=== PATIENT | male | born 1945 | race Caucasian/White ===

== ENCOUNTER 2018-05-03 11:08 | Observation (INO) ==
[2018-05-03 12:33] LABS: Baso % (Auto) 0.7 % (0.0-2.0); Eos # (Auto) 0.1 th/mm3 (0.0-0.4); Eos % (Auto) 1.8 % (0.0-4.0); Hematocrit 41.2 % (39.0-51.0); Hemoglobin 13.9 gm/dL (13.0-17.0); Lymph # (Auto) 0.7 th/mm3 (1.0-4.8); Lymph % (Auto) 10.8 % (9.0-44.0); Mean Corpuscular HGB Conc 33.9 % (32.0-36.0); Mean Corpuscular Hemoglobin 28.6 pg (27.0-34.0); Mean Corpuscular Volume 84.5 fL (80.0-100.0); Mean Platelet Volume 7.7 fL (7.0-11.0); Mono # (Auto) 0.5 th/mm3 (0.0-0.9); Mono % (Auto) 6.8 % (0.0-8.0); Neut # (Auto) 5.6 th/mm3 (1.8-7.7); Neut % (Auto) 79.9 % (16.0-70.0); Platelet Count 184 th/mm3 (150-450); Red Blood Count 4.88 mil/mm3 (4.50-5.90); Red Cell Distribution Width 13.2 % (11.6-17.2); White Blood Count 6.9 th/mm3 (4.0-11.0)
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
[2018-05-03 12:43] LABS: Chloride 104 meq/L (98-107); Potassium 4.4 meq/L (3.5-5.1); Sodium 138 meq/L (136-145)
[2018-05-03 12:46] LABS: Bilirubin,Urine Negative (Negative); Clarity,Urine Clear (Clear); Color,Urine Yellow (Yellw/Straw); Leukocyte Esterase,Urine Negative (Negative); Nitrite,Urine Negative (Negative); PH,Urine 5.5 (5.0-8.5); Urobilinogen,Urine 0.2 mg/dL (Less than 2)
[2018-05-03 12:48] LABS: Albumin 3.7 g/dL (3.4-5.0); Anion Gap 9 meq/L (5-15); Blood Urea Nitrogen 22 mg/dL (7-18); Carbon Dioxide 24.7 meq/L (21.0-32.0); Glucose,Random 280 mg/dL (74-106)
[2018-05-03 12:49] LABS: Magnesium 2.5 mg/dL (1.5-2.5)
[2018-05-03 12:51] LABS: Alanine Aminotransferase 20 U/L (12-78); Aspartate Aminotransferase 16 U/L (15-37); Glomerular Filtration Rate 46 mL/min (>89)
[2018-05-03 12:53] LABS: Total Protein 6.7 g/dL (6.4-8.2)
[2018-05-03 12:54] LABS: Alkaline Phosphatase 57 U/L (45-117)
[2018-05-03 12:57] LABS: Collection Time,Urine 1210 hours
[2018-05-03 12:58] LABS: RBC,Urine 0-3 /hpf (0-3); Squamous Epithelial Cell,Urine 0-5 /hpf (0-5)
--- NOTE | 2018-05-03 13:20 | CT ---
EXAM DATE: 05/03/2018 1:02 PM EST AGE/SEX: 73 years / Male INDICATIONS: Altered Mental Status CLINICAL DATA: This is the patient's initial encounter. Patient reports that signs and symptoms have been present for 1 day and indicates a pain score of 0/10. MEDICAL/SURGICAL HISTORY: Diabetes. Carcinoma, prostatic. Hypertension. Tonsillectomy. RADIATION DOSE: 59.28 CTDI (mGy) COMPARISON: POI, CT BRAIN W/O CONTRAST, 08/15/2016. . TECHNIQUE: CT of the head without contrast. Using automated exposure control and adjustment of the mA and/or kV according to patient size, radiation dose was kept as low as reasonably achievable to ob tain optimal diagnostic quality images. DICOM format image data is available electronically for revi ew and comparison. FINDINGS: Cerebrum: The ventricles are normal for age. No evidence of midline shift, mass lesion, hemorrhage or acute infarction. No extraaxial fluid collections are seen. Posterior Fossa: The cerebellum and brainstem are intact. The 4th ventricle is midline. The cerebe llopontine angle is unremarkable. Extracranial: The visualized portion of the orbits is intact. Skull: The calvaria is intact. No evidence of skull fracture. CONCLUSION: 1. Stable evaluation of the brain. 2. No evidence of acute infarct, hemorrhage, mass or edema. . Electronically signed by: Meliton Thomas MD Board Certified Radiologist 05/03/2018 1:19 PM EST
[2018-05-03] MEDS ORDERED: Dextrose 50% in Water 50 ML Vial IV.PUSH PRN (14:38)
[2018-05-03 14:44] LABS: Amphetamine Screen,Urine Neg (Neg); Barbiturate Screen,Urine Neg (Neg); Cannabinoid Screen,Urine Neg (Neg); Cocaine Screen,Urine Neg (Neg)
[2018-05-03 14:45] LABS: Opiate Screen,Urine Neg (Neg)
[2018-05-03] MEDS: Insulin NovoLOG Aspart Correctional Sugar Inj SQ SCH ×2 (17:37→21:57)
[2018-05-03] MEDS: Sod Chloride 0.9% Inj 1,000 ML IV.CONT SCH (17:39)
--- NOTE | 2018-05-03 17:41 | ECG ---
Date Performed: 05/03/2018 Time Performed: 12:39:20 PTAGE: 73 years EKG: SINUS BRADYCARDIA BORDERLINE ECG PREVIOUS TRACING : 04/07/2004 03.25 Since the previous tracing, no significant change noted DOCTOR: Win Nuñez Interpretating Date/Time 05/03/2018 17:39:31
--- NOTE | 2018-05-03 17:59 | US ---
EXAM DATE: 05/03/2018 5:38 PM EST AGE/SEX: 73 years / Male INDICATIONS: Transient ischemic attack. CLINICAL DATA: This is the patient's initial encounter. Patient reports that signs and symptoms have been present for 1 day and indicates a pain score of 1/10. MEDICAL/SURGICAL HISTORY: Hypercholesterolemia. Hypertension. Diabetes. Prostate cancer. Thyr oidectomy. Radiation therapy. COMPARISON: No prior exams available for comparison. VELOCITY PARAMETERS: ICA/CCA Ratio: Right 0.8 , Left 1.7 ICA: Right 70 cm/sec, Left 179 cm/sec CCA: Right 84 cm/sec, Left 104 cm/sec ECA: Right 76 cm/sec, Left 102 cm/sec Vertebral: Right 51 cm/sec antegrade, Left 33 cm/sec antegrade FINDINGS: Right Carotid: No significant plaque is visualized.The waveforms are within normal limits. Left Carotid: Mild arteriosclerotic plaque is visualized. The waveforms are within normal limits. Other: None. CONCLUSION: 1. Right Internal Carotid Artery: No significant stenosis or atherosclerotic plaque is visualized. 2. Left Internal Carotid Artery: Findings indicate <50% stenosis. Focal plaque is identified in the carotid bifurcation. Electronically signed by: Meliton Thomas MD Board Certified Radiologist 05/03/2018 5:58 PM EST
--- NOTE | 2018-05-03 18:53 | MR ---
EXAM DATE: 05/03/2018 6:33 PM EST AGE/SEX: 73 years / Male INDICATIONS: . Discoordination. Uncontrollable shaking. CLINICAL DATA: This is the patient's initial encounter. Patient reports that signs and symptoms have been present for 1 day and indicates a pain score of 0/10. MEDICAL/SURGICAL HISTORY: Carcinoma, prostatic. Diabetes mellitus type II. Hypertension. Tons illectomy. COMPARISON: No prior exams available for comparison. TECHNIQUE: Multiplanar, multisequence examination of the brain was performed without contrast. FINDINGS: There is an acute 2.4 cm infarct in the right parietal lobe and numerous additional small subcentimet er infarcts in the posterior right brain extending into the occipital and posterior temporal region. No left-sided infarcts identified. Mild white matter ischemic changes in the brain. Globes intact. No abnormal extra-axial fluid collections. CONCLUSION: 1. Numerous small infarcts in the posterior right MCA distribution. Largest measures about 2.4 cm in diameter. Mild white matter ischemic changes. Electronically signed by: Salvatore Shin MD Board Certified Radiologist 05/03/2018 6:51 PM EST
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
[2018-05-03] MEDS ORDERED: hydrALAZINE 25 MG Tablet PO ONE (20:20)
[2018-05-03] MEDS ORDERED: Famotidine 20 MG Tablet PO ONE (20:21)
[2018-05-03] MEDS: Insulin Detemir Inj 1,000 UNIT/10 ML Vial SQ SCH (21:56)
[2018-05-03] MEDS ORDERED: Aluminum/Magnesium/Simethacone Susp 30 ML UDC PO ONE (23:13)
[2018-05-04] MEDS: Insulin NovoLOG Aspart Correctional Sugar Inj SQ SCH ×2 (07:35→11:48)
[2018-05-04] MEDS: Insulin Detemir Inj 1,000 UNIT/10 ML Vial SQ SCH (08:07)
[2018-05-04 11:02] LABS: Chol/HDL Ratio 2.61 Ratio; HDL Cholesterol 64.2 mg/dL (40.0-60.0)
--- NOTE | 2018-05-04 12:01 | P.PNIM ---
Subjective Interval history: Patient says he is feeling well. no cp or sob Discussed with at bedside who says she will be with him at all times. She will not let him drive the car. Patient agrees he would not drive the car. Physical Exam Vital signs: Vital Signs 05/03/18 12:29 05/03/18 12:30 05/03/18 13:26 Temperature Pulse Rate 59 L 54 L Respiratory Rate 18 18 Blood Pressure 164/98 H 173/70 H Pulse Oximetry 98 98 98 05/03/18 14:03 05/03/18 16:00 05/03/18 16:41 Temperature 96.9 F L 96.9 F L Pulse Rate 58 L 60 60 Respiratory Rate 18 17 17 Blood Pressure 144/88 H 179/87 H 179/87 H Pulse Oximetry 98 100 100 05/03/18 20:00 05/03/18 23:57 05/04/18 04:00 Temperature 96.9 F L 96.3 F L 97.2 F L Pulse Rate 60 60 74 Respiratory Rate 20 20 20 Blood Pressure 195/109 H 201/87 H 174/84 H Pulse Oximetry 100 99 99 05/04/18 08:00 Temperature 98.0 F Pulse Rate 71 Respiratory Rate 16 Blood Pressure 173/98 H Pulse Oximetry 97 Intake & Output 05/03/18 05/04/18 05/04/18 18:59 06:59 18:59 Intake Total 480 / 480 240 / 240 Output Total 300 / 300 Balance 180 / 180 240 / 240 Weight 75.8 kg 75.6 kg Intake: Oral 480 / 480 240 / 240 Output: Urine 300 / 300 Other: # Voids 2 6 Date of Last Bowel Movement 05/03/18 # Bowel Movements 0 Narrative: GENERAL: Sitting up in chair. Appears comfortable. Oriented x3 SKIN: Warm and dry. HEAD: Normocephalic. EYES: No scleral icterus. No injection or drainage. NECK: Supple, trachea midline. No JVD. CARDIOVASCULAR: Regular rate and rhythm without murmurs, gallops, or rubs. RESPIRATORY: Breath sounds equal bilaterally. No accessory muscle use. GASTROINTESTINAL: Abdomen soft, non-tender, nondistended. MUSCULOSKELETAL: No cyanosis, or edema. BACK: Nontender without obvious deformity. No CVA tenderness. Results - Labs CBC & Chem 7: 05/03/18 12:25 05/03/18 12:25 Laboratory Results - last 24 hr 05/03/18 05/03/18 05/03/18 12:10 12:10 12:25 CBC w Diff Auto diff final WBC 6.9 RBC 4.88 Hgb 13.9 Hct 41.2 MCV 84.5 MCH 28.6 MCHC 33.9 RDW 13.2 Plt Count 184 MPV 7.7 Neut % (Auto) 79.9 H Lymph % (Auto) 10.8 [place] % (Auto) 6.8 Eos % (Auto) 1.8 Baso % (Auto) 0.7 Neut # (Auto) 5.6 Lymph # (Auto) 0.7 L [place] # (Auto) 0.5 Eos # (Auto) 0.1 Baso # (Auto) 0.0 WBC Differential . Differential Comment . Sodium Potassium Chloride Carbon Dioxide Anion Gap BUN Creatinine Estimated GFR POC Glucose Random Glucose Calcium Magnesium Total Bilirubin AST ALT Alkaline Phosphatase Ammonia Troponin I Total Protein Albumin Triglycerides Cholesterol LDL Cholesterol, Calc HDL Cholesterol Cholesterol/HDL Ratio TSH Ur Collection Type Clean catch Urine Color Yellow Urine Clarity Clear Urine pH 5.5 Ur Specific [place] 1.010 Urine Protein 30 H Urine Glucose (UA) 1000 or greater H Urine Ketones Negative Urine Occult Blood Trace Urine Nitrate Negative Urine Bilirubin Negative Urine Urobilinogen 0.2 Ur Leukocyte Esterase Negative Urine RBC 0-3 Ur Squamous Epith Cells 0-5 Micro UA Comment Culture not ind Ur Microscopic Review Microscopic reviewed Urine Culture Comments Culture not ind Urine Collection Time 1210 Urine Opiates Screen Neg Ur Barbiturates Screen Neg Ur Amphetamines Screen Neg U Benzodiazepines Scrn Neg Urine Cocaine Screen Neg U Cannabinoids Screen Neg 05/03/18 05/03/18 05/03/18 12:25 12:25 12:25 CBC w Diff WBC RBC Hgb Hct MCV MCH MCHC RDW Plt Count MPV Neut % (Auto) Lymph % (Auto) [place] % (Auto) Eos % (Auto) Baso % (Auto) Neut # (Auto) Lymph # (Auto) [place] # (Auto) Eos # (Auto) Baso # (Auto) WBC Differential Differential Comment Sodium 138 Potassium 4.4 Chloride 104 Carbon Dioxide 24.7 Anion Gap 9 BUN 22 H Creatinine 1.50 H Estimated GFR 46 L POC Glucose Random Glucose 280 H Calcium 9.0 Magnesium 2.5 Total Bilirubin 0.6 AST 16 ALT 20 Alkaline Phosphatase 57 Ammonia Less than 10 L Troponin I Less than 0.02 L Total Protein 6.7 Albumin 3.7 Triglycerides Cholesterol LDL Cholesterol, Calc HDL Cholesterol Cholesterol/HDL Ratio TSH 1.750 Ur Collection Type Urine Color Urine Clarity Urine pH Ur Specific [place] Urine Protein Urine Glucose (UA) Urine Ketones Urine Occult Blood Urine Nitrate Urine Bilirubin Urine Urobilinogen Ur Leukocyte Esterase Urine RBC Ur Squamous Epith Cells Micro UA Comment Ur Microscopic Review Urine Culture Comments Urine Collection Time Urine Opiates Screen Ur Barbiturates Screen Ur Amphetamines Screen U Benzodiazepines Scrn Urine Cocaine Screen U Cannabinoids Screen 05/03/18 05/03/18 05/04/18 16:57 21:56 07:29 CBC w Diff WBC RBC Hgb Hct MCV MCH MCHC RDW Plt Count MPV Neut % (Auto) Lymph % (Auto) [place] % (Auto) Eos % (Auto) Baso % (Auto) Neut # (Auto) Lymph # (Auto) [place] # (Auto) Eos # (Auto) Baso # (Auto) WBC Differential Differential Comment Sodium Potassium Chloride Carbon Dioxide Anion Gap BUN Creatinine Estimated GFR POC Glucose 245 H 172 H 155 H Random Glucose Calcium Magnesium Total Bilirubin AST ALT Alkaline Phosphatase Ammonia Troponin I Total Protein Albumin Triglycerides Cholesterol LDL Cholesterol, Calc HDL Cholesterol Cholesterol/HDL Ratio TSH Ur Collection Type Urine Color Urine Clarity Urine pH Ur Specific [place] Urine Protein Urine Glucose (UA) Urine Ketones Urine Occult Blood Urine Nitrate Urine Bilirubin Urine Urobilinogen Ur Leukocyte Esterase Urine RBC Ur Squamous Epith Cells Micro UA Comment Ur Microscopic Review Urine Culture Comments Urine Collection Time Urine Opiates Screen Ur Barbiturates Screen Ur Amphetamines Screen U Benzodiazepines Scrn Urine Cocaine Screen U Cannabinoids Screen 05/04/18 05/04/18 07:31 11:34 CBC w Diff WBC RBC Hgb Hct MCV MCH MCHC RDW Plt Count MPV Neut % (Auto) Lymph % (Auto) [place] % (Auto) Eos % (Auto) Baso % (Auto) Neut # (Auto) Lymph # (Auto) [place] # (Auto) Eos # (Auto) Baso # (Auto) WBC Differential Differential Comment Sodium Potassium Chloride Carbon Dioxide Anion Gap BUN Creatinine Estimated GFR POC Glucose 171 H Random Glucose Calcium Magnesium Total Bilirubin AST ALT Alkaline Phosphatase Ammonia Troponin I Total Protein Albumin Triglycerides 161 H Cholesterol 168 LDL Cholesterol, Calc 72 HDL Cholesterol 64.2 H Cholesterol/HDL Ratio 2.61 TSH Ur Collection Type Urine Color Urine Clarity Urine pH Ur Specific [place] Urine Protein Urine Glucose (UA) Urine Ketones Urine Occult Blood Urine Nitrate Urine Bilirubin Urine Urobilinogen Ur Leukocyte Esterase Urine RBC Ur Squamous Epith Cells Micro UA Comment Ur Microscopic Review Urine Culture Comments Urine Collection Time Urine Opiates Screen Ur Barbiturates Screen Ur Amphetamines Screen U Benzodiazepines Scrn Urine Cocaine Screen U Cannabinoids Screen - Imaging Impressions Carotid Doppler Study 05/03/18 00:00 CONCLUSION: 1. Right Internal Carotid Artery: No significant stenosis or atherosclerotic plaque is visualized. 2. Left Internal Carotid Artery: Findings indicate <50% stenosis. Focal plaque is identified in the carotid bifurcation. Head MRI 05/03/18 00:00 CONCLUSION: 1. Numerous small infarcts in the posterior right MCA distribution. Largest measures about 2.4 cm in diameter. Mild white matter ischemic changes. Head CT 05/03/18 12:16 CONCLUSION: 1. Stable evaluation of the brain. 2. No evidence of acute infarct, hemorrhage, mass or edema. . Assessment and Plan - Plan //Acute right MCA territory stroke //Altered mental status on admission. MRI reviewed with multiple small infarcts Aspirin given Carotid ultrasound with no stenosis or even plaque noted on the right -There is very slight left-sided weakness with no pronator drift on exam = Neuro checks, permissive hypertension. Consult neurology. EEG pending. = Discussed f with neurology. Pending EEG, echocardiogram. No events on telemetry. LDL 72. Will need to follow-up with cardiology as outpatient for event monitor. //Dyspepsia Patient reports chronic history of burping, does not tolerate lying flat. This interfered with MRI, as patient had just eaten. He does not take a PPI at home. Will place head of bed at 30 degrees. -Dyspepsia has been going on for years with burping. Advised patient follow with primary care for this. //Hypertension. We will hold off on blood pressure meds at this time. //Renal insufficiency. GFR 46, creatinine 1.5. Uncertain chronicity. Will monitor. //Diabetes mellitus. Chronic. We will place on long-acting insulin and sliding scale. Monitor closely. Discussed Condition With: Patient, nurse, neurologist, at bedside Discharge Planning: Hopefully home later today if echocardiogram and EEG without abnormalities.
--- NOTE | 2018-05-04 12:18 | MB ---
cc: Howard Saeed MD, PhD DATE: 05/04/2018 REASON FOR CONSULTATION: Stroke. HISTORY OF PRESENT ILLNESS: Mr. Davey is a very nice 73-year-old male with a history of memory loss for the past year or so, but 2 days ago had sudden onset of difficulty with depth perception while he was driving, tended to veer to the left, felt like he is drunk. He came to the ER, had no focal deficits. No speech changes. Initial CT of the brain was unremarkable. MRI of the brain revealed multiple small infarctions, right MCA territory, largest 2.4 cm. No hemorrhage is identified. PAST MEDICAL HISTORY: Hypertension, diabetes, hypercholesterolemia, prostate cancer. MEDICINES AT HOME: He takes aspirin 81 mg daily, insulin for diabetes, as well as p.o. medications for diabetes. He is on an antihypertensive as well as cholesterol medication. PHYSICAL EXAMINATION: VITAL SIGNS: Blood pressure is 201/87, pulse is 60, regular. He is in sinus rhythm, respirations 20, temperature 96 degrees. NEUROLOGIC: Higher cortical functions are normal. He is alert and oriented x3; however, he has poor recent memory loss. Recall 0 out of 3 objects in 3 minutes. Remote memory is intact. Calculations are normal. Speech is fluent. No aphasia. Cranial nerves: He has got a left homonymous hemianopsia, otherwise normal. Motor exam normal. 5/5 strength in all groups is noted. There is no drift. Fine motor skills within normal limits. Sensory exam is intact. Reflexes 2+ symmetric with no Babinski. RADIOLOGICAL DATA: Imaging is as noted above in the HPI. Carotid ultrasound negative for any significant stenosis. LABORATORY DATA: White count 6900, hemoglobin 13.9, hematocrit 41%, platelet count 184,000. Sodium is 138, potassium is 4.4. The BUN is 22. The creatinine is 1.5. LDL pending. ELECTROCARDIOGRAM: Sinus bradycardia, no A-fib. IMPRESSION: Right middle cerebral artery strokes. RECOMMENDATIONS: Start Plavix 75 mg daily. Monitor cardiac telemetry, rule out atrial fibrillation. Follow up on the LDL. Also check an echocardiogram to rule out embolic source. If no etiology is identified, consider long-term cardiac monitoring as an outpatient with a loop recorder to rule out intermittent atrial Thank you for asking me to see this nice man in consultation. Howard Saeed MD, PhD JEFFREY/uri , 10:22 AM , 10:29 AM
--- NOTE | 2018-05-04 12:52 | ECHRPT ---
Indication: CVA/TIA CONCLUSIONS Normal left ventricular size. Wall thickness is normal. The left ventricular systolic function is low normal with an estimated ejection fraction of 50%. No regional wall motion abnormalities are present. Trace mitral valve regurgitation. There is trace tricuspid valve regurgitation. The estimated pulmonary arterial pressure is 27 mmHg. BP: / HR: Rhythm: MEASUREMENTS (Male / Female) Normal Values Technical Quality: 2D ECHO LV Diastolic Diameter PLAX 4.6 cm 4.2 - 5.9 / 3.9 - 5.3 cm LV Systolic Diameter PLAX 3.6 cm IVS Diastolic Thickness 1.0 cm 0.6 - 1.0 / 0.6 - 0.9 cm LVPW Diastolic Thickness 0.7 cm 0.6 - 1.0 / 0.6 - 0.9 cm LV Relative Wall Thickness 0.4 RV Internal Dim ED PLAX 2.4 cm DOPPLER Mitral E Point Velocity 66.1 cm/s Mitral A Point Velocity 88.4 cm/s Mitral E to A Ratio 0.7 TR Peak Velocity 170.0 cm/s TR Peak Gradient 11.6 mmHg Right Atrial Pressure 15.0 mmHg Pulmonary Artery Systolic Pressu 26.6 mmHg Right Ventricular Systolic Press 26.6 mmHg FINDINGS LEFT VENTRICLE Normal left ventricular size. Wall thickness is normal. The left ventricular systolic function is low normal with an estimated ejection fraction of 50%. No regional wall motion abnormalities are present. RIGHT VENTRICLE Normal right ventricular size and systolic function. LEFT ATRIUM The left atrial size is normal. RIGHT ATRIUM The right atrial size is normal. ATRIAL SEPTUM Normal atrial septal thickness without atrial level shunting by limited color doppler interrogation. AORTA The aortic root and proximal ascending aorta are normal in size on limited imaging. MITRAL VALVE Trace mitral valve regurgitation. AORTIC VALVE Trileaflet aortic valve. No aortic valve stenosis or regurgitation. TRICUSPID VALVE There is trace tricuspid valve regurgitation. The estimated pulmonary arterial pressure is 27 mmHg. PULMONARY VALVE No pulmonary valve regurgitation or stenosis. VESSELS The inferior vena cava is normal in size. PERICARDIUM No pericardial effusion. Cristopher Maldonado MD (Electronically Signed) Final Date:04 May 2018 12:50
[2018-05-04 12:53] LABS: Hemoglobin A1c 7.8 % (4.3-6.0)
[2018-05-04] MEDS: Sod Chloride 0.9% Inj 1,000 ML IV.CONT SCH (15:36)
--- NOTE | 2018-05-07 10:18 | HM ---
Date Performed: 05/03/2018 Time Performed: 20:11:00 HOOKUP DATE: 05/03/18 08:11:00 PM Sat ANALYSIS START TIME: 05/03/2018 8:16:00 PM ANALYSIS END TIME: 05/04/2018 3:07:27 PM PATIENT AGE: 73 PATIENT HEIGHT: 73 PATIENT WEIGHT: 167 DRUG LIST: ROOM [id number] PATIENT DIAGNOSIS: AMS TEST NARRATIVE: The patient's average heart rate was 63 BPM. No episodes of tachycardia wer e noted. No episodes of bradycardia were noted. No pauses exceeding 2.0 seconds were noted. 168 ventricular ectopics, which represented < 1% of the total beat count, were noted. The highest ve ntricular ectopic frequency occurred from 01:00 PM to 02:00 PM Sun. During this time 25 VE(s) occurr ed. Ventricular ectopics were observed as 164 isolated beat(s) and as 2 couplet(s). No runs were no garry. 329 supraventricular ectopics, which represented < 1% of the total beat count, were noted. The highest supraventricular ectopic frequency occurred from 08:00 AM to 09:00 AM Sun. During this t sharmaine 114 SVE(s) occurred. In channel 1, a single episode of ST depression (defined as -1.0 mm or m ore) occurred at 06:28:55 AM Sun with a maximum depression of -1.4 mm. No episodes of ST depression (defined as -1.0 mm or more) were noted in channel 2. No episodes of ST depression (defined as -1.0 mm or more) were noted in channel 3. NO DIARY WAS GIVEN TO PATIENT TEST INTERPRETATION: Sinus rhythm rare to occasional premature atrial and ventricular complexes in singlets and couplets Signed by : Jesús Torres
== END 2018-05-04 16:11 | disposition home or self-care (01) ==
LOC: PHEDH 11:08 → PHED 11:08 → PH3 15:04
PROVIDERS: ADMIT Internal Medicine; ATTEND Internal Medicine
DX: Z92.3 Personal history of irradiation; Z87.891 Personal history of nicotine dependence; Z85.46 Personal history of malignant neoplasm of prostate; E78.5 Hyperlipidemia, unspecified; I63.519 Cerebral infarction due to unspecified occlusion or stenosis of unspecified middle cerebral artery; I10 Essential (primary) hypertension; R94.31 Abnormal electrocardiogram [ECG] [EKG]; Z79.82 Long term (current) use of aspirin; E78.00 Pure hypercholesterolemia, unspecified; R10.13 Epigastric pain; N28.9 Disorder of kidney and ureter, unspecified; R00.1 Bradycardia, unspecified; E11.9 Type 2 diabetes mellitus without complications; Z79.4 Long term (current) use of insulin
CPT/HCPCS: 70450; 70551; 80053; 80061; 80307; 81001; 82140; 82948; 82962; 83036; 83735; 84443; 84484; 85025; 92610; 93005; 93225; 93306; 93880; 96360; 96361; 96372; 97161; 97167; 99285; G0195; G0378; G8987; G8988; G8989; J1815; J7030